=== PATIENT | female | born 1970 | race African-American/Black ===

== ENCOUNTER 2016-12-13 13:24 | Inpatient (IN) | payer OTHER ==
[~2016-12-13] VITALS: Ht 162.6 cm; Wt 95.9 kg
[2016-12-13] VITALS (10 sets, daily range): BP systolic 115–154; BP diastolic 71–99
[2016-12-13 14:27] LABS: HEMATOCRIT 35.3 % (36.0-46.0); MCH 33.1 PG (29.0-34.0); MCHC 34.3 G/DL (30.0-36.0); MCV 96.4 FL (83-99); MEAN PLAT.VOLUME 10.7 uM^3 (9.5-12.4); PLATELET COUNT 279 K/uL (156-360); RBC DIS.WIDTH-SD 42.2 % (39-53); RED BLOOD COUNT 3.66 M/uL (3.80-5.20); WHITE BLOOD COUNT 8.4 K/uL (4.1-10.2)
[2016-12-13 15:02] LABS: ANION GAP 16 MEQ/L (2-14); CHLORIDE 95 MEQ/L (99-109); POTASSIUM 5.1 MEQ/L (3.7-5.4); SAMPLE HEMOLYSIS CHECK 1; SAMPLE ICTERIC CHECK 0; SAMPLE LIPEMIA CHECK 0; SODIUM 130 MEQ/L (136-147)
[2016-12-13 15:08] LABS: QUANTITATIVE HCG < 4.0 MIU/ML
[2016-12-13 15:11] LABS: GFR ESTIMATE (CALCULATED) 57 mL/min/; UREA NITROGEN (BUN) 21 mg/dL (9-23)
[2016-12-13 15:12] LABS: POINT-OF-CARE METER ID UU13113778
[2016-12-13] MEDS ORDERED: KLONOPIN0.5 M1 PO (15:21)
[2016-12-13] MEDS ORDERED: HUMULIN N100 UNIT/2 SC ×2 (15:22→16:28)
[2016-12-13 15:30] LABS: GLUCOSE 660 mg/dL (70-99)
[2016-12-13 15:41] LABS: ADD MIUA? YES; BILIRUBIN NEGATIVE; BLOOD LARGE; COLOR STRAW ((YELLOW)); GLUCOSE (STRIP) >=500; KETONES 80; LEUKOCYTES NEGATIVE; NITRITE NEGATIVE; PROTEIN (STRIP) NEGATIVE; SPECIFIC GRAVITY 1.026 (1.000-1.030); UROBILINOGEN 0.2 MG/DL (0.2-1.0)
[2016-12-13 15:45] LABS: BACTERIA NONE SEEN /HPF; EPITHELIAL CELLS RARE /HPF; MUCUS TRACE /LPF; RED BLOOD CELLS 0-5 /HPF (0-5)
[2016-12-13 15:48] LABS: CARBON DIOXIDE (BICARBONATE) 20.6 MEQ/L (20-31)
[2016-12-13] MEDS ORDERED: HUMULIN R100 UNITS/ SC (16:29)
[2016-12-13 19:53] LABS: METH RESISTANT S AUREUS PCR POSITIVE (NEGATIVE)
[2016-12-13 20:07] LABS: PROBE CHECK PASS
[2016-12-13 20:23] LABS: Estimated Average Glucose 200 mg/dL (70-123); HEMOGLOBIN A1c (GLYCOHEMOGLOB) 8.6 % HGB (Below 5.7)
[2016-12-13 20:56] LABS: POINT-OF-CARE METER ID UU14162636
[2016-12-13 21:00] LABS: ANION GAP 21 MEQ/L (2-14); CHLORIDE 99 MEQ/L (99-109); GFR ESTIMATE (CALCULATED) > 59 mL/min/; POTASSIUM 5.2 MEQ/L (3.7-5.4); SAMPLE HEMOLYSIS CHECK 1; SAMPLE ICTERIC CHECK 0; SAMPLE LIPEMIA CHECK 0; SODIUM 132 MEQ/L (136-147); UREA NITROGEN (BUN) 17 mg/dL (9-23)
[2016-12-13 21:03] LABS: GLUCOSE 466 mg/dL (70-99)
[2016-12-13 21:37] LABS: POINT-OF-CARE METER ID UU14162636
[2016-12-13 22:42] LABS: POINT-OF-CARE METER ID UU14162636
[2016-12-13 23:48] LABS: POINT-OF-CARE METER ID UU14162636
[2016-12-14] VITALS (14 sets, daily range): BP systolic 113–149; BP diastolic 72–100
[2016-12-14 00:56] LABS: POINT-OF-CARE METER ID UU14162636
[2016-12-14 01:22] LABS: CHLORIDE 109 mEq/L (99-109); POTASSIUM 4.7 mEq/L (3.7-5.4); SODIUM 137 mEq/L (136-147)
[2016-12-14 01:26] LABS: ANION GAP 10 MEQ/L (2-14)
[2016-12-14 01:28] LABS: GFR ESTIMATE (CALCULATED) > 59 mL/min/
[2016-12-14 01:29] LABS: UREA NITROGEN (BUN) 12 mg/dL (9-23)
[2016-12-14 01:34] LABS: GLUCOSE 181 mg/dL (70-99)
[2016-12-14 01:49] LABS: POINT-OF-CARE METER ID UU13113748
[2016-12-14 02:57] LABS: POINT-OF-CARE METER ID UU14174217
[2016-12-14 03:57] LABS: POINT-OF-CARE METER ID UU14174217
[2016-12-14 04:58] LABS: POINT-OF-CARE METER ID UU14174217
[2016-12-14 05:56] LABS: EOSINOPHIL COUNT 0.3 K/uL (0-0.3); HEMATOCRIT 30.8 % (36.0-46.0); IMMATURE GRANULOCYTE (%) 0.4 % (0.0-0.7); INSTRUMENT ABS NEUTROPHIL CT 2.6 K/uL; LYMPHOCYTE COUNT 1.9 K/uL (1.0-2.8); MCH 32.1 PG (29.0-34.0); MCHC 33.8 G/DL (30.0-36.0); MCV 95.1 FL (83-99); MEAN PLAT.VOLUME 10.4 uM^3 (9.5-12.4); MONOCYTE (%) 6.1 % (3-12); MONOCYTE COUNT 0.3 K/uL (0-0.8); NEUTROPHIL (%) 50.7 % (45-76); NEUTROPHIL COUNT 2.6 K/uL (1.8-6.4); PLATELET COUNT 259 K/uL (156-360); RBC DIS.WIDTH-CV 11.9 % (11.8-14.6); RBC DIS.WIDTH-SD 41.2 % (39-53); RED BLOOD COUNT 3.24 M/uL (3.80-5.20); WHITE BLOOD COUNT 5.1 K/uL (4.1-10.2)
[2016-12-14 06:01] LABS: POINT-OF-CARE METER ID UU14174217
[2016-12-14 06:17] LABS: ANION GAP 9 MEQ/L (2-14); CHLORIDE 109 MEQ/L (99-109); GFR ESTIMATE (CALCULATED) > 59 mL/min/; GLUCOSE 96 mg/dL (70-99); POTASSIUM 4.1 MEQ/L (3.7-5.4); SAMPLE HEMOLYSIS CHECK 0; SAMPLE ICTERIC CHECK 0; SAMPLE LIPEMIA CHECK 0; SODIUM 137 MEQ/L (136-147); UREA NITROGEN (BUN) 11 mg/dL (9-23)
[2016-12-14 07:06] LABS: POINT-OF-CARE METER ID UU14174217
[2016-12-14 08:26] LABS: POINT-OF-CARE METER ID UU13113748
[2016-12-14 09:29] LABS: POINT-OF-CARE METER ID UU14174217
[2016-12-14 09:31] LABS: ANION GAP 9 MEQ/L (2-14); CHLORIDE 107 MEQ/L (99-109); GFR ESTIMATE (CALCULATED) > 59 mL/min/; SAMPLE HEMOLYSIS CHECK 0; SAMPLE ICTERIC CHECK 0; SAMPLE LIPEMIA CHECK 0; SODIUM 135 MEQ/L (136-147); UREA NITROGEN (BUN) 10 mg/dL (9-23)
[2016-12-14 09:34] LABS: GLUCOSE 169 mg/dL (70-99)
[2016-12-14 11:02] LABS: POINT-OF-CARE METER ID UU14162636
[2016-12-14 11:02] LABS: POINT-OF-CARE METER ID UU13113731
[2016-12-14 12:19] LABS: POINT-OF-CARE METER ID UU14174217
[2016-12-14 13:35] LABS: ANION GAP 9 MEQ/L (2-14); CHLORIDE 104 MEQ/L (99-109); GFR ESTIMATE (CALCULATED) > 59 mL/min/; POTASSIUM 4.3 MEQ/L (3.7-5.4); SAMPLE HEMOLYSIS CHECK 0; SAMPLE ICTERIC CHECK 0; SAMPLE LIPEMIA CHECK 0; SODIUM 134 MEQ/L (136-147); UREA NITROGEN (BUN) 9 mg/dL (9-23)
[2016-12-14 13:36] LABS: GLUCOSE 265 mg/dL (70-99)
[2016-12-14 16:15] LABS: POINT-OF-CARE METER ID UU14174217
[2016-12-14 20:57] LABS: POINT-OF-CARE METER ID UU13113748
[2016-12-15 05:40] VITALS: BP 137/83
[2016-12-15 07:00] VITALS: BP 137/83
[2016-12-15 08:06] LABS: POINT-OF-CARE METER ID UU14162636
== END 2016-12-15 08:48 | disposition home or self-care (01) | DRG 638 ==
LOC: EME 13:24 → 4WEST 16:41 → EDOF 16:41 → ENRESERV 16:56 → 4WEST 17:58 → ENPENDDIS 12-15 → 4WEST 12-15 08:48
PROVIDERS: Internal Medicine Critical Care Medicine; Nurse Practitioner Family; Obstetrics & Gynecology; Physician Assistant Medical
DX: E10.10 Type 1 diabetes mellitus with ketoacidosis without coma (principal); E66.01 Morbid (severe) obesity due to excess calories; Z81.8 Family history of other mental and behavioral disorders; G25.82 Stiff-man syndrome; F41.9 Anxiety disorder, unspecified; Z79.4 Long term (current) use of insulin; Z68.36 Body mass index [BMI] 36.0-36.9, adult; E86.0 Dehydration; Z56.0 Unemployment, unspecified
CPT/HCPCS: 74176; 80048; 80048 91; 81003; 82803; 82948; 83036; 84100; 84702; 85025; 85027; 87641; 99281; 99284; J1815; J2405; J7030; J7050

== ENCOUNTER 2017-12-03 11:23 | Emergency (ER) | payer OTHER ==
[~2017-12-03] VITALS: Ht 162.6 cm; Wt 98.8 kg
[~2017-12-03 11:23] MED LIST: HUMULIN N100 UNIT/2 SC; HUMULIN R100 UNITS/ SC; KLONOPIN0.5 M1 PO
[2017-12-03] MEDS ORDERED: NAPROSYN500 MG PO (13:28)
[2017-12-03] MEDS ORDERED: FLEXERIL10 MG PO (13:28)
[2017-12-03 13:39] VITALS: BP 117/75
== END 2017-12-03 13:42 | disposition home or self-care (01) ==
LOC: EME 11:23
DX: M62.830 Muscle spasm of back (principal)
CPT/HCPCS: 72100; 99281; 99283; J1885